=== PATIENT | male | born 1960 | race Caucasian/White ===

== ENCOUNTER 2019-02-11 22:09 | Inpatient (IN) | payer OTHER ==
[~2019-02-11] VITALS: Ht 177.8 cm; Wt 107.0 kg
[2019-02-11 22:30] VITALS: BP 102/75
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
[2019-02-11] MEDS ORDERED: BUPR300T54 PO (23:22)
[2019-02-11] MEDS ORDERED: BECL10.62 IH (23:22)
[2019-02-11] MEDS ORDERED: HYDR-3026 PO (23:22)
[2019-02-11] MEDS ORDERED: HYDR12.55 PO (23:22)
[2019-02-12] MEDS ORDERED: MAGNESIUM HYDROXIDE 30 ML UDC PO PRN
[2019-02-12] MEDS ORDERED: ACETAMINOPHEN 325 MG TABLET PO PRN
[2019-02-12] MEDS ORDERED: ONDANSETRON HCL/PF 4 MG/2 ML VIAL IVP PRN
[2019-02-12] MEDS ORDERED: MAG HYDROX/AL HYDROX/SIMETH 30 ML UDC PO PRN
[2019-02-12] MEDS ORDERED: ZOLPIDEM TARTRATE 5 MG TABLET PO PRN
[2019-02-12] MEDS ORDERED: CLINDAMYCIN IV RTU IN D5W 900 MG/50 ML PIGGYBACK IV SCH
[2019-02-12] MEDS ORDERED: HYDROCODONE/APAP 5/325MG 1 EACH TABLET PO PRN
[2019-02-12] MEDS ORDERED: Z GUARD REMEDY 2 OZ OINT TP PRN
[2019-02-12] MEDS ORDERED: CLINDAMYCIN 900 MG/6 ML VIAL ONE (01:09)
[2019-02-12 06:23] LABS: BASOPHILS % (AUTO) 0.7 % (0.0-2.0); EOSINOPHILS % (AUTO) 5.2 % (0.0-6.0); HEMATOCRIT 44 % (39-51); HEMOGLOBIN 15.2 g/dL (13.5-17.5); LYMPHOCYTES # (AUTO) 1.3 /CMM (0.8-4.8); LYMPHOCYTES % (AUTO) 25.6 % (20.0-44.0); MEAN CORPUSCULAR HGB CONC 35 g/dl (31.0-36.0); MEAN CORPUSCULAR VOLUME 92 fL (80-96); MONOCYTES # (AUTO) 0.7 /CMM (0.1-1.30); NEUTROPHILS # (AUTO) 2.6 /CMM (1.8-8.9); NEUTROPHILS % (AUTO) 53.5 % (43.0-81.0); PLATELET COUNT (AUTO) 195 /CMM (150-450); RED BLOOD CELL COUNT(AUTO) 4.76 MIL/uL (4.5-6.0); WHITE BLOOD COUNT (AUTO) 4.9 K/uL (4.3-11.0)
--- NOTE | 2019-02-12 06:33 | NUR ---
RN NOTES ADMITTED PATIENT DIRECT ADMIT FROM [facility] WITH [facility] DUE TO LEFT LEG PAIN AND SWELLING. ALERT AND ORIENTED X4, STABLE ON ROOM AIR, COMPLAINING OF DISCOMFORT AND PAIN TO LEFT LEG, REFUSED PAIN MEDICATION, AMBULATORY, INDEPENDENT WITH ADLS, GIVEN CLINDAMYCIN IV, AWAITING WOUND CARE CONSULT
[2019-02-12 06:38] LABS: CALCIUM, SERUM 7.9 mg/dL (8.5-10.1); MAGNESIUM 1.9 mg/dL (1.8-2.4); PHOSPHORUS 3.4 mg/dL (2.5-4.9); POTASSIUM 4.1 mmol/L (3.5-5.1)
[2019-02-12 07:45] LABS: EOSINOPHILS % (MANUAL) 4 % (0-4); LYMPHOCYTES % (MANUAL) 21 % (16-48); MONOCYTES % (MANUAL) 14 % (0-11.0); NEUTROPHILS % (MANUAL) 61 (42-76)
[2019-02-12 08:04] VITALS: BP 128/76
[2019-02-12] MEDS: BUPROPION XL 150 MG TAB.ER.24 PO SCH (09:18)
[2019-02-12] MEDS: hydrOXYzine PAMOATE 25 MG CAPSULE PO SCH ×5 (09:18→22:10)
[2019-02-12] MEDS: HYDROCHLOROTHIAZIDE 25 MG TABLET PO SCH (09:19)
--- NOTE | 2019-02-12 09:30 | NUR ---
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
--- NOTE | 2019-02-12 11:22 | NUR ---
MS/RN Medications Morning medications administered as ordered.
[2019-02-12] MEDS: CLINDAMYCIN 900 MG in IV D5W 50 ML IV SCH ×2 (12:13→21:23)
--- NOTE | 2019-02-12 13:15 | NUR ---
MS/RN Clindamycin IVAB hung as ordered, no reaction noted.
[2019-02-12 16:02] VITALS: BP 119/73
--- NOTE | 2019-02-12 17:26 | NUR ---
MS/RN Refusing medication Patient refused to take vistaril, stating that he normally only takes this medication as needed at home, not on a scheduled basis. DNP made aware.
--- NOTE | 2019-02-12 18:51 | NUR ---
MS/RN End note Continues to complain of pain to left lower leg, but unwilling to take any medication as this time. 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
[2019-02-12 20:00] VITALS: BP 111/66
[2019-02-13] MEDS: CLINDAMYCIN 900 MG in IV D5W 50 ML IV SCH ×3 (05:16→20:49)
--- NOTE | 2019-02-13 06:33 | NUR ---
MS RN NOTES AWAKE & RESPONSIVE. NOT IN ANY DISTRESS. NO SOB NOTED. DENIES ANY PAIN OR DISCOMFORT AT THIS TIME. WITH IV-HL PATENT & INTACT. CALL LIGHT WITHIN REACH. BED IN LOWEST POSITION. SR UP X 2 FOR SAFETY. WILL ENDORSE TO NEXT SHIFT.
--- NOTE | 2019-02-13 07:53 | NUR ---
MS RN NOTES PATIENT RECEIVED RESTING INSIDE ROOM. AWAKE, ALERT AND ORIENTED, VERBALLY RESPONSIVE AND RESPONDS TO VERBAL AND TACTILE STIMULI. BREATHING EVEN AND UNLABORED. NO ACUTE DISTRESS. DENIES ANY PAIN OR DISCOMFORT. WILL CONTINUE TO MONITOR. BED LOCKED AND IN LOW POSITION. BILATERAL UPPER SIDE RAILS UP AND LOCKED. CALL LIGHT WITHIN EASY REACH
[2019-02-13 08:00] VITALS: BP 124/67
[2019-02-13] MEDS: hydrOXYzine PAMOATE 25 MG CAPSULE PO SCH ×4 (08:11→20:49)
[2019-02-13] MEDS: BUPROPION XL 150 MG TAB.ER.24 PO SCH (08:11)
[2019-02-13] MEDS: HYDROCHLOROTHIAZIDE 25 MG TABLET PO SCH (08:11)
[2019-02-13 16:00] VITALS: BP 120/79
[2019-02-13] MEDS ORDERED: BUDESONIDE RESPULE INH 0.5 MG/2 ML AMPUL.NEB IH SCH (17:00)
--- NOTE | 2019-02-13 19:20 | NUR ---
MS RN NOTES PATIENT RESTING INSIDE ROOM. AWAKE, ALERT AND ORIENTED X 4, VERBALLY RESPONSIVE AND RESPONDS TO VERBAL AND TACTILE STIMULI. NO ACUTE DISTRESS. DENIES ANY PAIN OR DISCOMFORT. IV INTACT AND PATENT. PATIENT KEPT CLEAN, DRY AND COMFORTABLE. ENDORSED TO JESSIE GALICIA FOR HAMIDA. CALL LIGHT WITHIN EASY REACH
[2019-02-13 19:50] VITALS: BP 120/66
[2019-02-13] MEDS: BUDESONIDE RESPULE INH 0.5 MG/2 ML AMPUL.NEB IH SCH (20:51)
[2019-02-14] MEDS: CLINDAMYCIN 900 MG in IV D5W 50 ML IV SCH ×2 (05:04→12:09)
--- NOTE | 2019-02-14 07:30 | NUR ---
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 A/O X4, vital signs stable, pain level currently 4/10, refusing any pain medication at this time. Reminded to keep left leg elevated on pillows to help reduce edema in lower leg. All needs addressed, time allowed for all fears and concerns to be addressed. Will continue to monitor and ensure safety.
[2019-02-14 08:00] VITALS: BP_SYST 121; BP_SYST 141; BP_DIAS 90
[2019-02-14 08:26] VITALS: BP 141/90
[2019-02-14] MEDS: BUPROPION XL 150 MG TAB.ER.24 PO SCH (08:26)
[2019-02-14] MEDS: HYDROCHLOROTHIAZIDE 25 MG TABLET PO SCH (08:26)
[2019-02-14] MEDS: hydrOXYzine PAMOATE 25 MG CAPSULE PO SCH ×2 (08:26→12:09)
[2019-02-14] MEDS: BUDESONIDE RESPULE INH 0.5 MG/2 ML AMPUL.NEB IH SCH ×2 (09:00→10:44)
--- NOTE | 2019-02-14 09:00 | NUR ---
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
--- NOTE | 2019-02-14 12:15 | NUR ---
MS/RN S/B Murali Valladares DNP Seen by DNP - patient to be discharged to home later this afternoon, with prescription to complete entire course of medication in pill form at home.
--- NOTE | 2019-02-14 12:37 | NUR ---
MS/RN IVAB IVAB clindamycin administered as ordered.
[2019-02-14] MEDS ORDERED: CLIN300C11 PO (13:49)
--- NOTE | 2019-02-14 13:53 | NUR ---
MS/RN Exit care Exit care completed, still waiting for MD order to discharge patient.
--- NOTE | 2019-02-14 14:23 | NUR ---
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 Heplock and name bands removed, all personal property accounted for on belongings list. Educated patient about the importance of following up with primary care doctor in one week or to return to the nearest emergency room if symptoms are severe. Instructed to observe leg for any increase in redness, edema, pain or if experiencing any fevers. Stated understanding of all of the above. Provided with copies of medical record and exit care. Escorted to main lobby by J[employer].
== END 2019-02-14 14:30 | disposition home or self-care (01) | DRG 383 ==
LOC: MEDSG2 22:09 → MEDSG1 02-14 08:58 → MEDSG2 02-14 08:58
PROVIDERS: ADMIT Hospitalist; ATTEND Hospitalist
DX: L03.116 Cellulitis of left lower limb (principal); F17.210 Nicotine dependence, cigarettes, uncomplicated; F32.9 Major depressive disorder, single episode, unspecified; I10 Essential (primary) hypertension; J45.909 Unspecified asthma, uncomplicated; M19.90 Unspecified osteoarthritis, unspecified site
CPT/HCPCS: 36415; 80048-TC; 80061-TC; 83735-TC; 84100-TC; 85025-TC; 87081-TC; A4216; G0378; J3490; J7050; J7060; Q0177